=== PATIENT | male | born 1930 | race Caucasian/White ===

== ENCOUNTER 2017-11-19 07:36 | Outpatient (CLI) | payer MEDICARE, OTHER ==
[2017-11-19] MEDS ORDERED: Iopamidol 370 76% 100 ML VIAL ONE (16:35)
== END 2017-11-19 07:37 | disposition home or self-care (01) ==
LOC: BICCT 07:36
PROVIDERS: ATTEND Internal Medicine Hematology & Oncology
DX: C84.00 Mycosis fungoides, unspecified site (principal); K80.20 Calculus of gallbladder without cholecystitis without obstruction; D17.1 Benign lipomatous neoplasm of skin and subcutaneous tissue of trunk; I70.90 Unspecified atherosclerosis; K57.90 Diverticulosis of intestine, part unspecified, without perforation or abscess without bleeding; K40.90 Unilateral inguinal hernia, without obstruction or gangrene, not specified as recurrent
CPT/HCPCS: 71260; 74177